=== PATIENT | male | born 1960 | race Caucasian/White ===

== ENCOUNTER 2024-06-04 18:59 | Inpatient (IN) | payer OTHER ==
[~2024-06-04] VITALS: Ht 188 cm; Wt 95.7 kg
[2024-06-04] MEDS ORDERED: ONDANSETRON HCL/PF 4 MG/2 ML VIAL ONE (21:10)
[2024-06-04] MEDS: ONDANSETRON HCL/PF 4 MG/2 ML VIAL IVP ONE (21:12)
[2024-06-04 21:24] LABS: BASOPHILS # (AUTO) 0.1 K/uL (0.0-0.2); BASOPHILS % (AUTO) 0.7 % (0.0-2.0); EOSINOPHILS % (AUTO) 0.1 % (0.0-6.0); HEMATOCRIT 41 % (39-51); HEMOGLOBIN 13.7 g/dL (13.5-17.5); LYMPHOCYTES # (AUTO) 0.6 K/uL (0.8-4.8); LYMPHOCYTES % (AUTO) 5.1 % (20.0-44.0); MEAN CORPUSCULAR HEMOGLOBIN 27 PG (26.0-33.0); MEAN CORPUSCULAR HGB CONC 33 g/dl (31.0-36.0); MEAN CORPUSCULAR VOLUME 80 fL (80-96); MONOCYTES # (AUTO) 0.5 K/uL (0.1-1.30); MONOCYTES % (AUTO) 4.7 % (2.0-12.0); NEUTROPHILS # (AUTO) 10.5 K/uL (1.8-8.9); NEUTROPHILS % (AUTO) 89.4 % (43.0-81.0); PLATELET COUNT (AUTO) 281 K/uL (150-450); RED BLOOD CELL COUNT(AUTO) 5.16 MIL/uL (4.5-6.0); RED CELL DISTRIBUTION WIDTH 15.6 % (11.5-15.0); WHITE BLOOD COUNT (AUTO) 11.8 K/uL (4.3-11.0)
[2024-06-04] MEDS: IV NS 0.9% 1,000 ML BAG IV ONE (21:30)
[2024-06-04 21:33] LABS: CARBON DIOXIDE 22 mmol/L (21-32); CHLORIDE 102 mmol/L (98-107); CREATININE 1.4 mg/dL (0.6-1.3); GLUCOSE 254 mg/dL (74-106); POTASSIUM 3.3 mmol/L (3.5-5.1); SODIUM SERUM 141 mmol/L (136-145); UREA NITROGEN, BLOOD 25 mg/dL (7-18)
[2024-06-04 21:39] LABS: ALANINE AMINOTRANSFERASE 19 U/L (12-78); ALBUMIN 3.5 g/dL (3.4-5.0); ALKALINE PHOSPHATASE 98 U/L (46-116); ASPARTATE AMINOTRANSFERASE 23 U/L (15-37); BILIRUBIN,DIRECT 0.2 mg/dL (0.0-0.2); BILIRUBIN,TOTAL 0.7 mg/dL (0.2-1.0); LIPASE 22 U/L (16-77); TOTAL PROTEIN, SERUM 8.7 g/dL (6.4-8.2)
[2024-06-04] MEDS ORDERED: MORPHINE SULFATE INJ 4 MG/ML DISP.SYRIN ONE (21:41)
[2024-06-04] MEDS ORDERED: FAMOTIDINE/PF INJ 20 MG/2 ML VIAL IV ONE (21:42)
[2024-06-04] MEDS: MORPHINE SULFATE INJ 2 MG/ML DISP.SYRIN IV ONE (21:45)
[2024-06-04] MEDS: FAMOTIDINE/PF INJ 20 MG/2 ML VIAL IV ONE (21:47)
[2024-06-04 22:52] LABS: APPEARANCE,URINE CLEAR (CLEAR); BILIRUBIN,URINE NEGATIVE (NEGATIVE); BLOOD, URINE 3+ Ery/uL (NEGATIVE); COLOR,URINE YELLOW (YELLOW); KETONES,URINE 1+ mg/dL (NEGATIVE); LEUKOCYTE ESTERASE ,URINE TRACE (NEGATIVE); NITRITE, URINE NEGATIVE (NEGATIVE); PH,URINE 7.5 (5.0-8.0); PROTEIN,URINE 1+ mg/dl (NEGATIVE); UGLUCOSE 2+ mg/dL (NEGATIVE); UROBILINOGEN,URINE 0.2 EU/dL (0.2)
[2024-06-04 23:05] LABS: WBC,URINE 0-2 /HPF (0-3)
[2024-06-04 23:06] LABS: ADD URINE CULTURE NO; BACTERIA,URINE None seen /HPF (None Seen); SQUAMOUS EPITHELIAL CELL,UR None Seen /HPF (None Seen)
[2024-06-04] MEDS ORDERED: FINASTERIDE (5 MG) 5 MG TABLET PO SCH (23:30)
[2024-06-04] MEDS ORDERED: CEFTRIAXONE 1GM BAG (ER ONLY) 50 ML IV ONE (23:45)
[2024-06-04] MEDS ORDERED: TAMSULOSIN 0.4 MG CAP.SR.24H ONE (23:45)
[2024-06-04] MEDS: TAMSULOSIN 0.4 MG CAP.SR.24H PO ONE (23:47)
[2024-06-04] MEDS: CEFTRIAXONE 1GM BAG (ER ONLY) 1 GM/50 ML PIGGYBACK IV ONE (23:47)
[2024-06-05] MEDS ORDERED: ZOLPIDEM TARTRATE 5 MG TABLET PO PRN (00:30)
[2024-06-05] MEDS ORDERED: Z GUARD REMEDY 4 OZ OINT TP PRN (00:30)
[2024-06-05 02:30] VITALS: BP 140/90; TEMP 98.2; O2SAT 95
[2024-06-05] MEDS: IV NS 0.9% 1,000 ML IV SCH (02:56)
[2024-06-05] MEDS ORDERED: AZITHROMYCIN 500 MG VIAL ONE (03:31)
[2024-06-05] MEDS: TAMSULOSIN 0.4 MG CAP.SR.24H PO ONE (03:53)
[2024-06-05] MEDS: AZITHROMYCIN 500 MG in IV D5W 250 ML IV ONE (03:54)
[2024-06-05] MEDS: ONDANSETRON HCL/PF 4 MG/2 ML VIAL IVP PRN (05:10)
[2024-06-05 07:30] VITALS: BP 177/105; TEMP 98.2; O2SAT 99
[2024-06-05] MEDS: POLYETHYLENE GLYCOL 3350 17 GM POWD.PACK PO SCH (08:37)
[2024-06-05] MEDS: FINASTERIDE (5 MG) 5 MG TABLET PO SCH (08:37)
[2024-06-05 12:43] LABS: BASOPHILS # (AUTO) 0.1 K/uL (0.0-0.2); BASOPHILS % (AUTO) 0.6 % (0.0-2.0); HEMATOCRIT 45 % (39-51); HEMOGLOBIN 14.7 g/dL (13.5-17.5); LYMPHOCYTES # (AUTO) 1.1 K/uL (0.8-4.8); LYMPHOCYTES % (AUTO) 8.8 % (20.0-44.0); MEAN CORPUSCULAR HEMOGLOBIN 26 PG (26.0-33.0); MEAN CORPUSCULAR HGB CONC 33 g/dl (31.0-36.0); MEAN CORPUSCULAR VOLUME 78 fL (80-96); MONOCYTES # (AUTO) 0.6 K/uL (0.1-1.30); MONOCYTES % (AUTO) 5.2 % (2.0-12.0); NEUTROPHILS # (AUTO) 10.3 K/uL (1.8-8.9); NEUTROPHILS % (AUTO) 85.4 % (43.0-81.0); PLATELET COUNT (AUTO) 274 K/uL (150-450); RED BLOOD CELL COUNT(AUTO) 5.69 MIL/uL (4.5-6.0); RED CELL DISTRIBUTION WIDTH 15.6 % (11.5-15.0)
[2024-06-05 12:51] LABS: ALBUMIN 2.9 g/dL (3.4-5.0); BILIRUBIN,TOTAL 0.4 mg/dL (0.2-1.0); CREATININE 1.1 mg/dL (0.6-1.3); PHOSPHORUS 2.6 mg/dL (2.5-4.9)
[2024-06-05] MEDS: POTASSIUM CHLORIDE 20 MEQ TAB.PRT.SR PO ONE (14:34)
[2024-06-05] MEDS ORDERED: ACET-868 PO (15:46)
[2024-06-05] MEDS ORDERED: BISA5TAB10 PO (15:46)
[2024-06-05] MEDS ORDERED: OXYC10TA49 PO (15:46)
[2024-06-05] MEDS ORDERED: CALC3.7S BNOSTRILS (15:46)
[2024-06-05] MEDS ORDERED: DUTA0.5C37 PO (15:46)
[2024-06-05] MEDS ORDERED: AMLO2.5T2 PO (15:46)
[2024-06-05] MEDS ORDERED: DULO30CA2 PO (15:46)
[2024-06-05] MEDS ORDERED: APIX2.5T PO (15:46)
[2024-06-05] MEDS ORDERED: INSU100V39 SQ (15:46)
[2024-06-05] MEDS ORDERED: LACT10SO58 PO (15:46)
[2024-06-05] MEDS ORDERED: MORP60CP14 PO (15:46)
[2024-06-05] MEDS ORDERED: SENN8.6T19 PO (15:46)
[2024-06-05] MEDS ORDERED: INSU100I26 SQ (15:46)
[2024-06-05] MEDS ORDERED: TRAZ-182 PO (15:46)
[2024-06-05] MEDS ORDERED: GABA600T12 PO (15:46)
[2024-06-05] MEDS ORDERED: TAMS-12 PO (15:46)
[2024-06-05 16:00] VITALS: BP 175/116; TEMP 98.1; O2SAT 100
[2024-06-05] MEDS ORDERED: MORPHINE SULFATE INJ 2 MG/ML DISP.SYRIN IV PRN (17:00)
[2024-06-05] MEDS: BLOOD SUGAR DIAGNOSTIC 1 EACH STRIP IN SCH (17:28)
[2024-06-05] MEDS: INSULIN REGULAR, HUMAN 100 UNIT/ML 3 ML VIAL SQ PRN (17:29)
[2024-06-05] MEDS ORDERED: DEXTROSE 50%-WATER 50 ML DISP.SYRIN IV PRN (17:30)
[2024-06-05] MEDS: MORPHINE SULFATE INJ 4 MG/ML DISP.SYRIN IV PRN (17:32)
[2024-06-05] MEDS: IV NS 0.9% 1,000 ML IV PRN (17:46)
[2024-06-05 20:00] VITALS: BP 207/100; TEMP 97.7; O2SAT 100
[2024-06-05] MEDS: MAG HYDROX/AL HYDROX/SIMETH 30 ML UDC PO PRN (20:29)
[2024-06-05] MEDS ORDERED: BISACODYL (5 MG) 5 MG TABLET.DR PO PRN (21:00)
[2024-06-05] MEDS: hydrALAZINE HCL IV 20 MG VIAL IV PRN (21:01)
[2024-06-05] MEDS: CEFTRIAXONE 1 G in IV D5W 50 ML IV SCH (21:02)
[2024-06-05] MEDS: AZITHROMYCIN 500 MG in IV D5W 250 ML IV SCH (21:45)
[2024-06-05] MEDS: TRAZODONE 50 MG TABLET PO SCH (21:47)
[2024-06-05] MEDS ORDERED: DUTASTERIDE (0.5 MG) 0.5 MG CAPSULE PO SCH ×2 (22:00)
[2024-06-06 07:30] VITALS: BP 125/94; TEMP 97.9; O2SAT 99
[2024-06-06 07:38] LABS: BASOPHILS % (AUTO) 0.2 % (0.0-2.0); HEMATOCRIT 45 % (39-51); HEMOGLOBIN 15.3 g/dL (13.5-17.5); LYMPHOCYTES # (AUTO) 1.3 K/uL (0.8-4.8); LYMPHOCYTES % (AUTO) 10.2 % (20.0-44.0); MEAN CORPUSCULAR HEMOGLOBIN 27 PG (26.0-33.0); MEAN CORPUSCULAR HGB CONC 34 g/dl (31.0-36.0); MEAN CORPUSCULAR VOLUME 78 fL (80-96); MONOCYTES # (AUTO) 0.8 K/uL (0.1-1.30); MONOCYTES % (AUTO) 6.5 % (2.0-12.0); NEUTROPHILS # (AUTO) 10.7 K/uL (1.8-8.9); NEUTROPHILS % (AUTO) 83.1 % (43.0-81.0); PLATELET COUNT (AUTO) 312 K/uL (150-450); RED BLOOD CELL COUNT(AUTO) 5.73 MIL/uL (4.5-6.0); RED CELL DISTRIBUTION WIDTH 15.6 % (11.5-15.0); WHITE BLOOD COUNT (AUTO) 12.8 K/uL (4.3-11.0)
[2024-06-06] MEDS: TAMSULOSIN 0.4 MG CAP.SR.24H PO SCH (08:03)
[2024-06-06] MEDS: GABAPENTIN 300 MG CAPSULE PO SCH (08:03)
[2024-06-06] MEDS: DULOXETINE HCL 30 MG CAPSULE.DR PO SCH (08:03)
[2024-06-06] MEDS: SENNOSIDES 8.6 MG TABLET PO SCH (08:03)
[2024-06-06] MEDS: AMLODIPINE BESYLATE 2.5 MG TABLET PO SCH (08:03)
[2024-06-06] MEDS: CALCITONIN,SALMON,SYNTHETIC 3.7 ML SPRAY.PUMP NS SCH (08:04)
[2024-06-06] MEDS: APIXABAN 2.5 MG TABLET PO SCH (08:04)
[2024-06-06 08:09] LABS: CALCIUM, SERUM 8.6 mg/dL (8.5-10.1); CREATININE 1.1 mg/dL (0.6-1.3); MAGNESIUM 1.7 mg/dL (1.8-2.4); PHOSPHORUS 2.1 mg/dL (2.5-4.9); POTASSIUM 2.9 mmol/L (3.5-5.1)
[2024-06-06] MEDS: MAGNESIUM OXIDE 400 MG TABLET PO ONE (09:51)
[2024-06-06] MEDS: POTASSIUM CHLORIDE 20 MEQ TAB.PRT.SR PO SCH (10:36)
[2024-06-06] MEDS: POTASSIUM CL. PREMIX PERIPHER. 50 ML IV SCH (12:14)
[2024-06-06] MEDS: METOCLOPRAMIDE HCL 10 MG/2 ML VIAL IV PRN (13:24)
[2024-06-06] MEDS ORDERED: HYDROMORPHONE 1 MG/1 ML DISP.SYRIN IV PRN (13:30)
[2024-06-06] MEDS: HYDROMORPHONE 1 MG/1 ML DISP.SYRIN IV ONE (13:52)
[2024-06-06 16:00] VITALS: BP 132/92; TEMP 98.2; O2SAT 97
[2024-06-06] MEDS: K PHOS NEUTRAL 250 MG TABLET PO ONE (16:07)
[2024-06-06 20:00] VITALS: BP 190/112; TEMP 97.9; O2SAT 95
[2024-06-06] MEDS: HYDROMORPHONE 1 MG/1 ML DISP.SYRIN IV PRN (20:56)
[2024-06-07] MEDS: LACTULOSE 10 G/15 ML UDC (PYXIS) PO PRN (06:36)
[2024-06-07 07:51] LABS: BASOPHILS % (AUTO) 0.3 % (0.0-2.0); EOSINOPHILS % (AUTO) 0.1 % (0.0-6.0); HEMATOCRIT 42 % (39-51); HEMOGLOBIN 14.1 g/dL (13.5-17.5); LYMPHOCYTES # (AUTO) 1.7 K/uL (0.8-4.8); LYMPHOCYTES % (AUTO) 16.4 % (20.0-44.0); MEAN CORPUSCULAR HEMOGLOBIN 26 PG (26.0-33.0); MEAN CORPUSCULAR HGB CONC 33 g/dl (31.0-36.0); MEAN CORPUSCULAR VOLUME 79 fL (80-96); MONOCYTES # (AUTO) 0.8 K/uL (0.1-1.30); MONOCYTES % (AUTO) 7.5 % (2.0-12.0); NEUTROPHILS # (AUTO) 7.9 K/uL (1.8-8.9); NEUTROPHILS % (AUTO) 75.7 % (43.0-81.0); PLATELET COUNT (AUTO) 288 K/uL (150-450); RED BLOOD CELL COUNT(AUTO) 5.36 MIL/uL (4.5-6.0); RED CELL DISTRIBUTION WIDTH 15.7 % (11.5-15.0); WHITE BLOOD COUNT (AUTO) 10.4 K/uL (4.3-11.0)
[2024-06-07 07:58] VITALS: BP 122/77; TEMP 97.5; O2SAT 97
[2024-06-07 08:08] LABS: CALCIUM, SERUM 8.3 mg/dL (8.5-10.1); CREATININE 1.2 mg/dL (0.6-1.3); MAGNESIUM 2.3 mg/dL (1.8-2.4); PHOSPHORUS 1.9 mg/dL (2.5-4.9); POTASSIUM 3.5 mmol/L (3.5-5.1)
[2024-06-07] MEDS: MAGNESIUM HYDROXIDE 30 ML UDC PO PRN (10:50)
[2024-06-07] MEDS: ACETAMINOPHEN 325 MG TABLET PO PRN (14:06)
[2024-06-07] MEDS: K PHOS NEUTRAL 250 MG TABLET PO ONE (16:22)
[2024-06-07] MEDS: AMLODIPINE BESYLATE 5 MG TABLET PO SCH (17:35)
[2024-06-07] MEDS: LOSARTAN POTASSIUM 50 MG TABLET PO SCH (17:35)
[2024-06-07] MEDS: HYDROMORPHONE INJ 2 MG/ML DISP.SYRIN IV PRN (17:41)
[2024-06-07] MEDS: hydrALAZINE HCL 50 MG TABLET PO SCH (19:21)
[2024-06-07 20:00] VITALS: BP 122/77; TEMP 97.5; O2SAT 97
[2024-06-08 06:39] LABS: BASOPHILS # (AUTO) 0.1 K/uL (0.0-0.2); BASOPHILS % (AUTO) 0.8 % (0.0-2.0); EOSINOPHILS # (AUTO) 0.1 K/uL (0.0-0.7); EOSINOPHILS % (AUTO) 1.1 % (0.0-6.0); HEMATOCRIT 38 % (39-51); HEMOGLOBIN 12.9 g/dL (13.5-17.5); LYMPHOCYTES # (AUTO) 1.5 K/uL (0.8-4.8); LYMPHOCYTES % (AUTO) 18.9 % (20.0-44.0); MEAN CORPUSCULAR HEMOGLOBIN 27 PG (26.0-33.0); MEAN CORPUSCULAR HGB CONC 34 g/dl (31.0-36.0); MEAN CORPUSCULAR VOLUME 80 fL (80-96); MONOCYTES # (AUTO) 0.8 K/uL (0.1-1.30); MONOCYTES % (AUTO) 9.5 % (2.0-12.0); NEUTROPHILS # (AUTO) 5.6 K/uL (1.8-8.9); NEUTROPHILS % (AUTO) 69.7 % (43.0-81.0); PLATELET COUNT (AUTO) 238 K/uL (150-450); RED BLOOD CELL COUNT(AUTO) 4.79 MIL/uL (4.5-6.0); RED CELL DISTRIBUTION WIDTH 15.5 % (11.5-15.0)
[2024-06-08 08:00] VITALS: BP 99/66; TEMP 98.4; O2SAT 95
[2024-06-08 08:27] LABS: CALCIUM, SERUM 8.3 mg/dL (8.5-10.1); CREATININE 1.2 mg/dL (0.6-1.3); POTASSIUM 3.2 mmol/L (3.5-5.1)
[2024-06-08] MEDS ORDERED: AMLODIPINE BESYLATE 2.5 MG TABLET PO SCH (09:00)
[2024-06-08] MEDS: POTASSIUM CHLORIDE 20 MEQ TAB.PRT.SR PO SCH (09:57)
[2024-06-08] MEDS ORDERED: FINA5TAB3 PO (11:43)
[2024-06-08] MEDS ORDERED: DOXY100C2 PO (11:45)
[2024-06-08 12:06] VITALS: BP 138/82
== END 2024-06-08 15:00 | disposition home health service (06) | DRG 137 ==
LOC: ER 19:01 → MED 06-05 01:40
PROVIDERS: ATTEND Internal Medicine
DX: J15.69 Pneumonia due to other Gram-negative bacteria (principal); N17.9 Acute kidney failure, unspecified; N13.1 Hydronephrosis with ureteral stricture, not elsewhere classified; J15.9 Unspecified bacterial pneumonia; E86.0 Dehydration; E87.6 Hypokalemia; E11.65 Type 2 diabetes mellitus with hyperglycemia; N40.0 Benign prostatic hyperplasia without lower urinary tract symptoms; Z89.512 Acquired absence of left leg below knee; M89.8X9 Other specified disorders of bone, unspecified site; N32.0 Bladder-neck obstruction; N32.89 Other specified disorders of bladder; N13.9 Obstructive and reflux uropathy, unspecified; I10 Essential (primary) hypertension; Y95 Nosocomial condition
CPT/HCPCS: 36415; 71045-TC; 80048-TC; 80053-TC; 80076-TC; 81001; 82962-TC; 83690-TC; 83735-TC; 84100-TC; 84484-TC; 85025-TC; A4223; G0378; J0360; J0456; J0696; J1170; J1815; J2270; J2405; J2765; J3480; J3490; J7030; J7050; J7060